=== PATIENT | male | born 1980 | race Asian ===

== ENCOUNTER 2021-12-26 14:09 | Emergency (ER) | payer MEDICAID ==
[~2021-12-26] VITALS: Ht 177.8 cm; Wt 52.2 kg
--- NOTE | 2021-12-26 14:15 | NUR ---
Pt brought by self, A&Ox4, pt presents to ER with severe back pain since yesterday, skin pink and warm, cap refill <3, VSS, respirations even and unlabored, cap refill <3.
[2021-12-26 14:26] VITALS: BP_SYST 107
--- NOTE | 2021-12-26 16:55 | NUR ---
Dr Vela evaluating patient at bedside
[2021-12-26] MEDS ORDERED: KETOROLAC TROMETHAMINE 30 MG VIAL IM ONE (17:00)
[2021-12-26] MEDS ORDERED: methocarbamoL 500 MG TABLET PO ONE (17:00)
[2021-12-26] MEDS ORDERED: OXYCODONE/ACETAMINOPHEN 5-325 TABLET PO ONE (17:00)
[2021-12-26] MEDS ORDERED: LIDOCAINE PATCH 5% 1 EA TP SCH (17:00)
[2021-12-26] MEDS ORDERED: LIDOCAINE PATCH 5% 1 EA TP ONE (17:30)
[2021-12-26] MEDS ORDERED: METH-634 PO (17:55)
[2021-12-26] MEDS ORDERED: ACET-2634 PO (17:55)
[2021-12-26] MEDS ORDERED: LIDOINT TP (17:55)
[2021-12-26 18:08] VITALS: BP_SYST 107
--- NOTE | 2021-12-26 18:09 | NUR ---
Patient given written and verbal discharge instructions and verbalizes understanding. ER MD discussed with patient the results and treatment provided. Patient in stable condition. ID arm band removed. Rx of Tylenol, Lidocaine and Robaxin given. Patient educated on pain management and to follow up with PMD. Pain Scale 0/10 . Opportunity for questions provided and answered. Medication side effect fact sheet provided.
== END 2021-12-26 18:09 | disposition home or self-care (01) ==
LOC: SED 14:09
DX: S39.012A Strain of muscle, fascia and tendon of lower back, initial encounter (principal); W20.8XXA Other cause of strike by thrown, projected or falling object, initial encounter; Y93.E2 Activity, laundry; Y92.89 Other specified places as the place of occurrence of the external cause; Y99.8 Other external cause status
CPT/HCPCS: 99284; 96372; J1885